=== PATIENT | female | born 1995 | race Hispanic/Latino ===

== ENCOUNTER 2021-10-13 15:10 | Emergency (ER) | payer BC, SELFPAY ==
[2021-10-13] VITALS (12 sets, daily range): BP systolic 107–137; BP diastolic 69–86; PULSE 84–115; RESP 15–16; TEMP 36.6; O2SAT 87–100
--- NOTE | ~2021-10-13 | CT_ITS ---
EXAMINATION: CT abdomen pelvis w con INDICATION: Lower abdominal pain TECHNIQUE: Computed tomographic images of the abdomen and pelvis were obtained after the administrati on of 100 cc of Omnipaque 350 intravenous contrast. The dose-length product (DLP) was 359.14 mGy-cm. Automated exposure control and iterative reconstruction technique were employed. COMPARISON: None available FINDINGS: Minimal dependent atelectasis is present in the lung bases. The heart size is normal. The l iver, spleen, pancreas, gallbladder, and adrenal glands are normal. The kidneys are unremarkable. No pathologically enlarged abdominal or pelvic lymph nodes are identified. There is no free intraperiton eal gas or evidence of bowel obstruction. The appendix is normal. There is a moderate amount of free fluid in the pelvis. There appears to be hydrosalpinx on the right. There is edematous stranding of t he pelvic fat. IMPRESSION: 1. Findings suggestive of pelvic inflammatory disease with right-sided hydrosalpinx and free fluid in the pelvis. Further evaluation with pelvic ultrasound is recommended. Reviewed, dictated and finalized at location F. [place] WIRELESS ASSOCIATE IMPRESSION: 1. Findings suggestive of pelvic inflammatory disease with right-sided hydrosal pinx and free fluid in the pelvis. Further evaluation with pelvic ultrasound is recommended.
--- NOTE | ~2021-10-13 | US_ITS ---
EXAMINATION: US pelvic complete w TV EXAM DATE: 10/13/2021 22:18 INDICATION: Pelvic pain. TECHNIQUE: Pelvic transabdominal and transvaginal sonogram was performed. There are multiple graysca le and Doppler images available for interpretation. Correlation is made to CT scan 10/13/2021. FINDINGS: Uterus measures 7.2 x 4.9 x 6.3 cm, and is morphologically normal. Endometrial stripe kristen sures 8 mm, within normal limits. There is small free pelvic fluid. Right adnexa: The ovary measures 4.5 x 1.9 x 2.8 cm, with several follicles. There is small amount of adjacent free fluid. No hydrosalpinx identified. Ovarian vascular flow confirmed. Left adnexa: The ovary measures 2.3 x 2.4 x 2.0 cm and is morphologically normal. Ovarian vascular fl ow confirmed. IMPRESSION: Mildly enlarged right ovary with several follicles. No evidence of hydrosalpinx. No torsi on. Reviewed, dictated and finalized at location A. NCED PRACTICE PROVIDER IMPRESSION: Mildly enlarged right ovary with several follicles. No evidence of hydrosalpinx. No torsion.
--- NOTE | 2021-10-13 18:32 | ECG_ITS ---
Measurements Intervals [place] Rate: 88 P: 65 VT: 152 QRS: 58 QRSD: 78 T: 31 QT: 333 QTc: 404 Interpretive Statements SINUS RHYTHM NORMAL ECG Electronically Signed On 10-13-2021 20:01:23 STENCIL PRINTER by Judson Hollis D.O.
--- NOTE | 2021-10-13 18:35 | ED.GENADULT ---
HPI - General Adult General Chief complaint: Vaginal Bleeding <Jean-Paul Pennington SAURABH Barron BC - Last Filed: 10/13/21 22:26> Stated complaint: abd pain <Jean-Paul Pennington SAURABH Barron BC - Last Filed: 10/13/21 22:26> Time Seen by Provider: 10/13/21 17:59 <Jean-Paul Pennington SAURABH Barron BC - Last Filed: 10/13/21 22:26> Source: patient <Jean-Paul Pennington SAURABH Barron BC - Last Filed: 10/13/21 22:26> Mode of arrival: ambulatory <Jean-Paul Pennington SAURABH Barron BC - Last Filed: 10/13/21 22:26> Limitations: no limitations <Jean-Paul Pennington SAURABH Barron BC - Last Filed: 10/13/21 22:26> History of Present Illness HPI narrative: Patient presents for evaluation of abdominal pain since yesterday. Pain is constant, sharp, rated 8 out of 10 in severity, without radicular component. No history of similar symptoms. She had some nausea yesterday but no vomiting. She had a temperature of 101 ?F yesterday and also experienced some chills. She denies any diarrhea. Last bowel movement was this morning, solid in consistency, without the presence of blood or mucus in the stool. She has a history of irregular menstruation but her periods typically last around 5 days. She states today is the 10th day that she is experienced vaginal bleeding. She states that bleeding has significantly decreased. She denies any vaginal discharge. She noted hematuria earlier today but denies any other urinary symptoms. She took an OTC pain reliever with improvement in her symptoms thereafter. On arrival here her heart rate was 115, however on my exam her heart rate is 90 bpm. She attributes her tachycardia on arrival to anxiety, which she states she experiences when being seen by a medical provider. <Jean-Paul Pennington SAURABH Barron BC - Last Filed: 10/13/21 22:26> Related Data Allergies/adverse reactions: Allergies Allergy/AdvReac Type Severity Reaction Status Date / Time No Known Allergies Allergy Verified 10/13/21 17:51 <SAURABH Romero BC - Last Filed: 10/13/21 22:26> Review of Systems Review of Systems: CONSTITUTIONAL: Reports fever and chills. EYES: Denies visual changes, redness, or discharge. ENT: Denies rhinorrhea, congestion, sore throat, or otalgia. CARDIOVASCULAR: Denies chest pain, palpitations, or edema. RESPIRATORY: Denies cough or dyspnea. GASTROINTESTINAL: Reports abdominal pain negative with recent nausea, although none currently. Denies vomiting or diarrhea. GENITOURINARY: Reports hematuria. Denies dysuria, urinary frequency, hesitancy, urgency SKIN: Denies rash or itching. MUSCULOSKELETAL: Denies back pain, joint pain, or myalgia. NEUROLOGIC: Denies headache, numbness, dizziness, or weakness. PSYCHIATRIC: Denies anxiety or depression. <SAURABH Romero BC - Last Filed: 10/13/21 22:26> PMFSH Past Medical History Medical History: Medical History No pertinent past medical history <SAURABH Romero BC - Last Filed: 10/13/21 22:26> Family History Family History: Family History Mother No pertinent past medical history <SAURABH Romero BC - Last Filed: 10/13/21 22:26> Social History Social History: Social History Living arrangements: with family Gender identity (if verbalized by the patient): Female Sexual Orientation (if Verbalized by the Patient): Straight or Heterosexual Spiritual care concerns: No <SAURABH Romero BC - Last Filed: 10/13/21 22:26> Exam Narrative: GENERAL: Well-appearing, well-nourished, and in no acute distress. HEAD: Normocephalic, atraumatic. EYES: PERRLA and EOMI. ENT: Nares clear, no rhinorrhea or epistaxis. Mucous membranes moist. Oropharynx without tonsillar hypertrophy exudate or other lesions. Bilateral TMs pearly monteiro nonbulging NECK: Supple. No adenopathy or masses. No hendrix
[2021-10-13] MEDS: SODIUM CHLORIDE 0.9% IV 1,000 ML 999 ML IV CONT (18:44)
[2021-10-13 18:49] LABS: Basophils Percent Auto 0.3 % (0.2-1.2); Eosinophils Percent Auto 0.3 % (0-4.4); Hematocrit 38.7 % (37.0-47.0); Hemoglobin 13.2 g/dL (12.0-15.0); Immature Granulocyte Absolute 0.09 K/mm3 (0.00-0.031); Immature Granulocyte Percent A 0.6 % (0-0.5); Lymphocytes Absolute Auto 2.06 K/mm3 (0.9-3.2); Lymphocytes Percent Auto 14.7 % (18.3-44.2); Mean Corpuscular HGB Conc 34.1 g/dl (32-36); Mean Corpuscular Hemoglobin 29.7 pg (26-34); Mean Corpuscular Volume 87.2 fl (80-100); Mean Platelet Volume 9.3 fl (7.4-10.4); Monocytes Absolute Auto 0.7 K/mm3 (0.1-0.6); Neutrophils Absolute Auto 11.1 K/mm3 (1.3-6.7); Neutrophils Percent Auto 79.1 % (45.5-73.1); Platelet Count Result 227 k/mm3 (150-375); Red Blood Count 4.44 M/mm3 (4.2-5.4); Red Cell Distribution Width 12.3 % (11.5-14.5)
[2021-10-13 18:56] LABS: Add Urine Microscopic? YES; Appearance Urine Clear (Clear); Bilirubin Urine Negative (Negative); Blood Urine Negative (Negative); Color Urine Amber (Yellow); Glucose Urine UA Negative (Negative); Ketones Urine Trace mg/dL (Negative); Leukocyte Esterase Ur 2+ LEU/UL (Negative); Mucus Urine Heavy /lpf; Nitrate Urine Negative (Negative); Protein Urine 1+ mg/dL (Negative); Squamous Epithelial Cell Urine Few /hpf (Few); WBC Urine 31-50 /hpf
[2021-10-13 18:58] LABS: Specific Grav Ur 1.032 (1.001-1.035)
[2021-10-13 18:59] LABS: INR 1.2; Prothrombin Time 15.1 Seconds (11.1-14.7)
[2021-10-13 19:00] LABS: Lactic Acid Reflex 0.7 mmol/L (0.7-2.1)
[2021-10-13 19:00] LABS: Partial Thromboplastin Time 36.6 SECONDS (22.3-36.8)
[2021-10-13 19:01] LABS: Alanine Aminotransferase 13 U/L (4-35); Albumin Level 4.7 g/dL (3.5-5.1); Alkaline Phosphatase 81 U/L (38-126); Anion Gap 11 mmol/L (8-16); Aspartate Amino Transferase 19 U/L (14-36); Bilirubin,Total 0.9 mg/dL (0.2-1.3); Blood Urea Nitrogen 16 mg/dL (7-17); Calcium 9.5 mg/dL (8.4-10.2); Carbon Dioxide 25 mmol/L (22-30); Chloride 102 mmol/L (98-107); Estimated CRCL calculation 88 ml/min; Estimated Glomerular Filt Rate > 60; Glucose 89 mg/dL (65-110); Lipase 39 U/L (23-300); Potassium 3.6 mmol/L (3.4-5.0); Sodium 138 mmol/L (137-145)
[2021-10-13] MEDS: LIDOCAINE HCL 1% LOCAL INJ 20 ML VIAL (22:20)
[2021-10-13] MEDS: cefTRIAXone 1 GM VIAL 0.5 GM IM (22:20)
[2021-10-13] MEDS: DOXYCYCLINE HYCLATE 100 MG TABLET PO (22:22)
--- NOTE | 2021-10-13 23:13 | PC.NURSE ---
Assumed care of pt at this time.
== END 2021-10-13 23:51 | disposition home or self-care (01) ==
PROVIDERS: Nurse Practitioner; Emergency Provider Emergency Medicine; PCP Emergency Medicine
DX: N73.0 Acute parametritis and pelvic cellulitis (principal); R10.84 Generalized abdominal pain
CPT/HCPCS: 36415; 74177; 76830; 76856; 80053; 81001; 81025; 83605; 83690; 85025; 85610; 85730; 87070; 87086; 87491; 87591; 87808; 93005; 96372; 99284; A9270; J0696; J7030; Q9967

== ENCOUNTER 2024-05-20 16:05 | Outpatient (CLI) | payer BC, SELFPAY ==
[2024-05-20 17:21] LABS: Beta HCG Quantitative 120.32 mIU/ML
== END 2024-05-20 16:06 | disposition home or self-care (01) ==
LOC: ANHLAB 16:17
PROVIDERS: PCP Emergency Medicine; Visit Provider Advanced Practice Midwife
DX: O20.0 Threatened abortion (principal); Z3A.00 Weeks of gestation of pregnancy not specified
CPT/HCPCS: 36415; 84702

== ENCOUNTER 2024-05-23 16:05 | Outpatient (CLI) | payer BC, SELFPAY ==
[2024-05-23 17:26] LABS: Beta HCG Quantitative 129.73 mIU/ML
== END 2024-05-23 16:06 | disposition home or self-care (01) ==
PROVIDERS: PCP Emergency Medicine; Visit Provider Advanced Practice Midwife
DX: O20.0 Threatened abortion (principal); Z3A.00 Weeks of gestation of pregnancy not specified
CPT/HCPCS: 36415; 84702

== ENCOUNTER 2024-05-25 16:13 | Outpatient (CLI) | payer BC, SELFPAY ==
[2024-05-25 16:58] LABS: Beta HCG Quantitative 132.82 mIU/ML
== END 2024-05-25 16:14 | disposition home or self-care (01) ==
LOC: ANHLAB 16:15
PROVIDERS: PCP Emergency Medicine; Visit Provider Advanced Practice Midwife
DX: O20.0 Threatened abortion (principal); Z3A.00 Weeks of gestation of pregnancy not specified
CPT/HCPCS: 36415; 84702

== ENCOUNTER 2024-05-27 11:29 | Outpatient (CLI) | payer BC, SELFPAY ==
[2024-05-27 11:48] LABS: Basophils Percent Auto 0.5 % (0.2-1.2); Eosinophils Absolute Auto 0.1 K/mm3 (0-0.3); Hematocrit 39.5 % (37.0-47.0); Hemoglobin 13.4 g/dL (12.0-15.0); Immature Granulocyte Absolute 0.05 K/mm3 (0.00-0.031); Immature Granulocyte Percent A 0.6 % (0-0.5); Lymphocytes Absolute Auto 2.05 K/mm3 (0.9-3.2); Lymphocytes Percent Auto 26.6 % (18.3-44.2); Mean Corpuscular HGB Conc 33.9 g/dl (32-36); Mean Corpuscular Hemoglobin 30.5 pg (26-34); Mean Platelet Volume 9.2 fl (7.4-10.4); Monocytes Absolute Auto 0.4 K/mm3 (0.1-0.6); Monocytes Percent Auto 5.2 % (2.6-8.5); Neutrophils Absolute Auto 5.1 K/mm3 (1.3-6.7); Neutrophils Percent Auto 66.1 % (45.5-73.1); Platelet Count Result 220 k/mm3 (150-375); Red Blood Count 4.39 M/mm3 (4.2-5.4); Red Cell Distribution Width 12.1 % (11.5-14.5); White Blood Count 7.7 K/mm3 (4.5-10.0)
[2024-05-27 12:02] LABS: Alanine Aminotransferase 15 U/L (6-35); Albumin Level 4.3 g/dL (3.5-5.1); Alkaline Phosphatase 55 U/L (38-126); Anion Gap 8 mmol/L (4-12); Aspartate Amino Transferase 19 U/L (14-36); Bilirubin,Total 0.7 mg/dL (0.2-1.3); Blood Urea Nitrogen 12 mg/dL (7-17); Calcium 8.9 mg/dL (8.4-10.2); Carbon Dioxide 29 mmol/L (22-30); Chloride 100 mmol/L (98-107); Estimated Glomerular Filt Rate > 60; Glucose 125 mg/dL (65-110); Sodium 137 mmol/L (137-145)
[2024-05-27 12:18] LABS: Beta HCG Quantitative 117.52 mIU/ML
== END 2024-05-27 11:30 | disposition home or self-care (01) ==
LOC: ANHLAB 11:33
PROVIDERS: PCP Emergency Medicine; Visit Provider Obstetrics & Gynecology
DX: O00.90 Unspecified ectopic pregnancy without intrauterine pregnancy (principal); Z3A.00 Weeks of gestation of pregnancy not specified
CPT/HCPCS: 36415; 80053; 84702; 85025

== ENCOUNTER 2024-05-30 15:59 | Outpatient (CLI) | payer BC, SELFPAY ==
[2024-05-30 17:19] LABS: Beta HCG Quantitative 81.82 mIU/ML
== END 2024-05-30 16:00 | disposition home or self-care (01) ==
LOC: ANHLAB 16:03
PROVIDERS: PCP Emergency Medicine; Visit Provider Obstetrics & Gynecology
DX: O00.90 Unspecified ectopic pregnancy without intrauterine pregnancy (principal)
CPT/HCPCS: 36415; 84702

== ENCOUNTER 2024-06-02 16:31 | Outpatient (CLI) | payer BC, SELFPAY ==
[2024-06-02 17:30] LABS: Beta HCG Quantitative 61.88 mIU/ML
== END 2024-06-02 16:32 | disposition home or self-care (01) ==
LOC: ANHLAB 16:34
PROVIDERS: PCP Emergency Medicine; Visit Provider Obstetrics & Gynecology
DX: O00.90 Unspecified ectopic pregnancy without intrauterine pregnancy (principal)
CPT/HCPCS: 36415; 84702

== ENCOUNTER 2024-06-27 11:42 | Day surgery (SDC) | payer BC, SELFPAY ==
[2024-06-24 08:42] VITALS: BMI 24.5
--- NOTE | 2024-06-24 08:49 | PC.NURSE ---
Report to the Outpatient Waiting Room, entrance under the green pavilion located off [facility], at time _1100_ on date _[id number]_. Planned Procedure Time: _1pm_.? Time changes happen often and if your time is changed the preop area will call you the afternoon before. - You and your visitor will be asked to self-screen and do not enter if you have any COVID symptoms. Please call surgeon if you need to reschedule. - A mask is optional within the hospital at this time. Patients may have clear liquids (water, carbonated beverages, clear teas, apple juice) until 3 hours prior to surgery with a maximum of 20 ounces. - No food from midnight until time of surgery and no smoking Take only the following medications with a SIP of water on the morning of surgery: __None DO NOT STOP ANY OF YOUR OTHER PRESCRIPTION MEDICATIONS PRIOR TO SURGERY EXCEPT THE FOLLOWING Medications to discontinue per physician None____ Please no make-up, nail sami, hairspray, perfume, deodorant, or body powder the day of surgery.? No jewelry (including any body piercings) or valuables the day of surgery, leave them at home.? Please take a shower or bath the night before, or the morning of, surgery with an antibacterial soap.? Wear comfortable, loose fitting clothing.? - Jewelry must be removed prior to entering the operating room.? Rings and piercings that are not removed may be cut off. - The hospital will not accept responsibility for valuables.? - Please leave all valuables, including medications, at home the day of surgery. If you are going home after surgery, a licensed ups driver must drive you home.? - NO public transportation without another adult if you receive anesthesia. - We recommend that an adult stay with you for 24 hours following discharge. - We also recommend that you do not drive, make important decision, drink alcoholic beverages, or take any drugs that were not prescribed by your health care provider for at least 24 hours after your discharge time. Follow any additional instructions given to you from your surgeon. Telephone instructions given to __Lilian__and asked if any additional questions and then verbalized understanding. Patient advised to call surgeon office or pre surgery nurse liaison [phone] if any additional questions.
[2024-06-27] VITALS (9 sets, daily range): BP systolic 107–122; BP diastolic 72–91; PULSE 77–104; RESP 13–18; TEMP 36.6–37; O2SAT 99–100
--- NOTE | 2024-06-27 11:33 | WPDHPUPDATE1 ---
History and Physical Update Update Date/Time: 06/27/24 11:33 History and Physical has been reviewed, including an updated exam of the patient. There are NO changes in the patient's condition. Risks, benefits, and alternatives have been discussed and questions answered. Patient agrees to proceed with procedure.
--- NOTE | 2024-06-27 12:25 | P.PNAN_ITS ---
Anes - Initial Pre Proc Eval Procedure: Operation Date: 06/27/24 13:00 Proposed Procedures p Suction Dilatation and Curettage, - Madhu Yuan MD s Diagnostic Laparoscopy - Madhu Yuan MD Date/Time: 06/27/24 12:25 Surgeon: Madhu Yuan MD Pre Op Diagnosis: ectopic Patient Data Age: 28 Gender: F Height: Weight: Allergies Allergy/AdvReac Type Severity Reaction Status Date / Time No Known Allergies Allergy Verified 10/13/21 17:51 Home Medications Medication Instructions Recorded Confirmed Type doxycycline hyclate 100 mg capsule 100 mg PO BID #28 caps 10/13/21 Rx doxycycline hyclate 100 mg tablet 100 mg PO BID #28 tabs 10/13/21 Rx metronidazole 500 mg tablet 500 mg PO Q12H #28 tabs 10/13/21 Rx metronidazole 500 mg tablet 500 mg PO Q12H #28 tabs 10/13/21 Rx Patient hx anesthesia problems: none Family hx anesthesia problems: none Results Review: All pre-operative results and documents have been reviewed as part of the pre-op erative evaluation. [facility] Past Medical History Medical History No pertinent past medical history Family History Family History Mother No pertinent past medical history Social History Social History Living arrangements: with family Gender identity (if verbalized by the patient): Female Sexual Orientation (if Verbalized by the Patient): Straight or Heterosexual Spiritual care concerns: No Anes - Eval Final PreProcedure Day of Procedure 06/27/24 12:25 Patient weight: normal Heart: regular rate and rhythm Lungs: clear to auscultation Airway: Mallampati scale class II Neurological: alert and oriented Last oral intake: >/= 8 hours ASA classification: II Emergent: no Anesthetic plan: proceed Anesthesia type and monitoring: general ETT and standard monitoring Results Review: All pre-operative results and documents have been reviewed as part of the pre- operative evaluation. Informed Consent: The patient's anesthetic plan and its attendant risks and benefits were discussed with the patient/family/POA. Questions were solicited and answers provided to the satisfaction of the patient/family/POA.
[2024-06-27] MEDS: ACETAMINOPHEN 500 MG TABLET 1000 MG PO (12:30)
[2024-06-27] MEDS: LACTATED RINGERS 1,000 ML 30 ML IV CONT (12:32)
[2024-06-27] MEDS: KETOROLAC 15 MG/ML VIAL (*BKC) IV PUSH (12:35)
--- NOTE | 2024-06-27 14:37 | P.OP_ITS ---
Procedure Note - Detailed Date of Procedure 06/27/24 Pre-op Diagnosis ectopic with thickened endometrium Post-op Diagnosis Same Procedure Performed Diagnostic laparoscopy , With right salpingectomy , hysteroscopy Surgeon Madhu Yuan MD Anesthesia General Indications Pelvic pain Findings large endometrial implants in the posterior cul-de-sac, firm mass in the ampullary region of the cervix/ectopic . scarred, stenotic internal os of the cervix. Description of Procedure The patient was taken to the operating room. She was prepped and draped in the dorsal lithotomy position after induction general anesthesia. A 5 mm incision was made with a scalpel on the abdominal skin in the left upper quadrant of the abdomen. A 5 mm trocar was inserted into the intra-abdominal cavity under di rect visualization the scope. In the same fashion a 5 mm left lower quadrant trocar was inserted and a 5 mm infraumbilical trocar was inserted. Right salpingectomy was performed using LigaSure cautery. The mesosalpinx was cauterized and cut from the ovary medially to the cornual area of the uterus. The tube was transected. The amputated removed. Was removed in fragments due to the firm nature of the mass in the ampullary region. The pelvis was irrigated. The pneumoperitoneum was reduced. The trocars were removed. Skin was closed with subcuticular 4 micro. The patient's incisions w ere covered with Dermabond. She was taken recovery room in stable condition. Sponge lap and needle counts were correct x2. Speculum was placed in the cervix. The cervix grasped with a tenaculum. The hysteroscope was inserted the endocervical canal. The stenotic cervix was completely coapted and impassable. Hysteroscope was withdrawn. Tenaculum and speculum were removed. Complications No immediate complications Condition Stable Disposition Same day
[2024-06-27] MEDS: oxyCODONE HCL (*CRX) 5 MG TAB IR PO (15:53)
[2024-06-27] MEDS: fentaNYL CITRATE INJ (*CRX) 100 MCG/2 ML VIAL 25 MCG IV PUSH (15:53)
--- NOTE | 2024-06-30 11:40 | PC.NURSE ---
06/24/24 08:49 - [id number] : 1995 Patient Age: 28 Report to the Outpatient Waiting Room, entrance under the green pavilion located off [facility], at time _1100_ on date _[id number]_. Planned Procedure Time: _1pm_.? Time changes happen often and if your time is changed the preop area will call you the afternoon before. - You and your visitor will be asked to self-screen and do not enter if you have any COVID symptoms. Please call surgeon if you need to reschedule. - A mask is optional within the hospital at this time. Patients may have clear liquids (water, carbonated beverages, clear teas, apple juice) until 3 hours prior to surgery with a maximum of 20 ounces. - No food from midnight until time of surgery and no smoking Take only the following medications with a SIP of water on the morning of surgery: __None DO NOT STOP ANY OF YOUR OTHER PRESCRIPTION MEDICATIONS PRIOR TO SURGERY EXCEPT THE FOLLOWING Medications to discontinue per physician None____ Please no make-up, nail cypriot, hairspray, perfume, deodorant, or body powder the day of surgery.? No jewelry (including any body piercings) or valuables the day of surgery, leave them at home.? Please take a shower or bath the night before, or the morning of, surgery with an antibacterial soap.? Wear comfortable, loose fitting clothing.? - Jewelry must be removed prior to entering the operating room.? Rings and piercings that are not removed may be cut off. - The hospital will not accept responsibility for valuables.? - Please leave all valuables, including medications, at home the day of surgery. If you are going home after surgery, a licensed pile driver must drive you home.? - NO public transportation without another adult if you receive anesthesia. - We recommend that an adult stay with you for 24 hours following discharge. - We also recommend that you do not drive, make important decision, drink alcoholic beverages, or take any drugs that were not prescribed by your health care provider for at least 24 hours after your discharge time. Follow any additional instructions given to you from your surgeon. Telephone instructions given to __Lilian__and asked if any additional questions and then verbalized understanding. Patient advised to call surgeon office or pre surgery nurse liaison [phone] if any additional questions.
== END 2024-06-27 16:53 | disposition home or self-care (01) ==
PROVIDERS: Visit Provider Obstetrics & Gynecology
PROC: (CPT 58661; principal; 2024-06-27 13:00)
PROC: (CPT 49320; 2024-06-27 13:00)
DX: N88.8 Other specified noninflammatory disorders of cervix uteri (principal); N88.2 Stricture and stenosis of cervix uteri; N80.329 Endometriosis of the posterior cul-de-sac, unspecified depth
CPT/HCPCS: 58661; 58555; 88305; A9270; J0330; J1100; J1170; J1885; J2250; J2405; J2704; J3010; J7030; J7120